=== PATIENT | male | born 1950 | race Caucasian/White ===

== ENCOUNTER 2022-07-26 17:43 | Emergency (ER) | payer MEDICARE, OTHER ==
[~2022-07-26] VITALS: Ht 175.3 cm; Wt 88.0 kg
[2022-07-26 19:38] LABS: HEMATOCRIT 45.1 % (39.0-50.0); HEMOGLOBIN 14.8 g/dl (14.0-18.0); IMMATURE GRANULOCYTES 0.5 % (0.0-5.0); MEAN CELL VOLUME 93.6 fL CALC (80.0-100.0); MEAN CORPUSCULAR HGB 30.7 pG CALC (26.0-32.0); MEAN CORPUSCULAR HGB CONC 32.8 g/dL CAL (32.0-36.0); NEUT# 11.7 thou/uL (1.82-7.42); RED BLOOD COUNT 4.82 mill/uL (4.70-6.10); RED CELL DISTRI WIDTH 12.9 % (11.5-15.5)
[2022-07-26 19:51] LABS: ALBUMIN 5.3 g/dL (3.2-5.0); ALKALINE PHOSPHATASE 95 u/l (38-126); ANION GAP 20 (6-22 (CALC)); BILIRUBIN, TOTAL 0.8 mg/dL (0.0-1.4); BUN 29 mg/dL (8-23); BUN/CREATININE RATIO 25 (12-20 (CALC)); CARBON DIOXIDE 22 mmol/l (22-30); CHLORIDE 103 mmol/l (95-108); CREATININE 1.2 mg/dL (0.7-1.3); GFR FOR AFR.AMER. > 60 ML/MIN (>=60 (CALC)); GFR OTHER RACES 60 ML/MIN (>=60 (CALC)); LIPASE 96 u/l (23-300); POTASSIUM 4.5 mmol/l (3.5-5.1); SGOT/AST 90 u/l (19-48); SODIUM 140 mmol/l (137-146); TOTAL PROTEIN 8.9 g/dL (6.3-8.2)
[2022-07-26 21:27] LABS: URINE BILIRUBIN - DIPSTICK NEGATIVE (NEGATIVE); URINE BLOOD DIPSTICK TRACE-INTACT (NEGATIVE); URINE COLOR YELLOW; URINE GLUCOSE - DIPSTICK NEGATIVE (NEGATIVE); URINE KETONE 40 mg/dL (NEGATIVE); URINE LEUK ESTERASE NEGATIVE (NEGATIVE); URINE PH 5.5 (4.5-8.0); URINE PROTEIN - DIPSTICK TRACE mg/dL (NEG-TRACE); URINE SPECIFIC GRAVITY 1.025; URINE UROBILINOGEN - DIPSTICK 0.2 E.U./dL (0.2)
[2022-07-26 21:30] LABS: URINE NITRITE - DIPSTICK NEGATIVE (Negative)
[2022-07-26 21:33] VITALS: BP 96/79
[2022-07-26] MEDS ORDERED: ULTRAM50 M1 PO (21:58)
[2022-07-26 22:01] VITALS: BP 127/103
== END 2022-07-26 22:08 | disposition home or self-care (01) ==
LOC: ED 17:43
PROVIDERS: Family Medicine
DX: S20.212A Contusion of left front wall of thorax, initial encounter (principal); X37.0XXA Hurricane, initial encounter; W13.2XXA Fall from, out of or through roof, initial encounter; Y93.H9 Activity, other involving exterior property and land maintenance, building and construction; Y92.008 Other place in unspecified non-institutional (private) residence as the place of occurrence of the external cause
CPT/HCPCS: Q9967